=== PATIENT | male | born 1950 | race Caucasian/White ===

== ENCOUNTER 2024-11-15 12:46 | Inpatient (IN) | payer MEDICARE ==
[2024-11-15 13:22] LABS: #Basophils Less than 0.03 10x3/uL (0.0-0.2); #Eosinophils Less than 0.03 10x3/uL (0.0-0.5); #Monocytes 0.53 10x3/uL (0.0-1.1); #Neutrophils 11.24 10x3/uL (1.5-8.4); %Basophils 0.2 % (0.0-2.0); %Eosinophils 0.1 % (0.0-6.0); %Lymphocytes 7.5 % (18.0-47.0); %Monocytes 4.1 % (0.0-10.0); %Neutrophils 87.7 % (40.0-75.0); Hematocrit 41.3 % (38.8-50.0); Mean Corpuscular HGB CONC 31.5 g/dL (32.0-36.0); Mean Corpuscular Hemoglobin 28.6 pg (27.0-33.0); Mean Corpuscular Volume 90.8 fL (81.2-95.1); Mean Platelet Volume 8.8 fL (7.4-10.4); Platelet Count 182 10x3/uL (150-450); RBC Distribution Width 13.2 % (11.5-14.5); Red Blood Cell (RBC) Count 4.55 10x6/uL (4.32-5.72); White Blood Cell (WBC) Count 12.8 10x3/uL (3.5-10.5)
[2024-11-15] MEDS ORDERED: Metoclopramide HCl 10 MG (2 mL) VIAL ONE (13:24)
[2024-11-15] MEDS ORDERED: Aspirin Chewable 81 MG TAB ONE (13:34)
[2024-11-15] MEDS ORDERED: Nitroglycerin 0.4 MG TAB 1 EACH ONE ×2 (13:36→14:47)
[2024-11-15] MEDS ORDERED: Furosemide 100 MG (10 mL) VIAL ONE (13:51)
[2024-11-15] MEDS ORDERED: fentaNYL 50 mcg/mL 1 mL Vial ONE (13:51)
[2024-11-15] MEDS ORDERED: Nitroglycerin 2% Ointment 1 INCH/1 GM Packet ONE (13:51)
[2024-11-15 14:36] LABS: ALT (SGPT) 9 U/L (8-55); AST (SGOT) 13 U/L (5-34); Albumin 3.9 g/dL (3.4-4.8); Alkaline Phosphatase 81 U/L (40-110); Anion Gap 19 mmol/L (10-20); BUN (Urea Nitrogen) 28 mg/dL (8.4-25.7); Bilirubin, Total 0.4 mg/dL (0.2-1.2); Calc. Creatinine Clearance 0 mL/min (70-130); Calcium 9.6 mg/dL (7.8-10.44); Carbon Dioxide 20 mmol/L (23-31); Chloride 106 mmol/L (98-107); Estimated GFR 32; Globulin 3.6 g/dL (2.4-3.5); Glucose 170 mg/dL (83-110); Potassium 4.6 mmol/L (3.5-5.1); Protein, Total 7.5 g/dL (5.8-8.1); Sodium 140 mmol/L (136-145); Troponin I 0.027 ng/mL (< 0.028)
[2024-11-15 15:33] LABS: Magnesium 2.2 mg/dL (1.6-2.6)
[2024-11-15] MEDS ORDERED: Dextrose 5% in Water 1,000 ML IV PRN (16:15)
[2024-11-15] MEDS ORDERED: Dextrose 50% Abboject 50 ML SYRINGE SLOW IVP PRN (16:15)
[2024-11-15] MEDS ORDERED: Insulin Regular, Human 100 UNIT/ML 10 ML VIAL SC PRN (16:15)
[2024-11-15] MEDS ORDERED: Glucagon 1 MG/ML KIT IM PRN (16:15)
[2024-11-15] MEDS ORDERED: Ondansetron PF 4 MG/2 ML Vial IVP PRN (16:15)
[2024-11-15] MEDS ORDERED: Senokot S 8.6-50 MG TAB PO PRN (16:15)
[2024-11-15] MEDS ORDERED: Heparin 25,000 units/D5W 500 ML ONE (16:21)
[2024-11-15 16:37] LABS: PTT 25.9 sec (22.0-33.0); Prothrombin Time 11.1 sec (9.5-12.1)
[2024-11-15 18:36] LABS: Troponin I 0.459 ng/mL (< 0.028)
[2024-11-15] MEDS: Ferrous Sulfate 325 MG TAB PO SCH ×2 (19:33→20:47)
[2024-11-15] MEDS: FLU (Fluad Triv) TS24-25 (65UP)/MF59C/PF 45 MCG/0.5 ML Syringe IM ONE (19:33)
[2024-11-15] MEDS: Carvedilol 6.25 MG TAB PO SCH (20:42)
[2024-11-15] MEDS: Rosuvastatin 10 MG TAB PO SCH (20:47)
[2024-11-15] MEDS: Apixaban 5 MG TAB PO SCH (20:47)
[2024-11-15 23:06] LABS: Critical Call Chem Troponin I ICU.EGM@2304/JG2/WITHREADBACK; Troponin I 1.745 ng/mL (< 0.028)
[2024-11-15] MEDS: Melatonin 3 MG TAB PO SCH (23:53)
[2024-11-16] MEDS: Lantus 1000 UNITS/10 ML VIAL SC SCH ×2 (00:20→20:51)
[2024-11-16 05:28] LABS: Anion Gap 16 mmol/L (10-20); BUN (Urea Nitrogen) 29 mg/dL (8.4-25.7); Calc. Creatinine Clearance 37 mL/min (70-130); Calcium 9.3 mg/dL (7.8-10.44); Carbon Dioxide 21 mmol/L (23-31); Chloride 106 mmol/L (98-107); Estimated GFR 30; Glucose 102 mg/dL (83-110); Potassium 3.9 mmol/L (3.5-5.1); Sodium 139 mmol/L (136-145)
[2024-11-16 05:35] LABS: #Eosinophils 0.06 10x3/uL (0.0-0.5); #Monocytes 0.91 10x3/uL (0.0-1.1); #Neutrophils 7.99 10x3/uL (1.5-8.4); %Basophils 0.1 % (0.0-2.0); %Eosinophils 0.6 % (0.0-6.0); %Lymphocytes 14.9 % (18.0-47.0); %Monocytes 8.6 % (0.0-10.0); %Neutrophils 75.5 % (40.0-75.0); Hematocrit 36.7 % (38.8-50.0); Hemoglobin 11.4 g/dL (13.5-17.5); Mean Corpuscular HGB CONC 31.1 g/dL (32.0-36.0); Mean Corpuscular Hemoglobin 27.9 pg (27.0-33.0); Mean Platelet Volume 8.8 fL (7.4-10.4); Platelet Count 169 10x3/uL (150-450); RBC Distribution Width 13.2 % (11.5-14.5); Red Blood Cell (RBC) Count 4.08 10x6/uL (4.32-5.72); White Blood Cell (WBC) Count 10.6 10x3/uL (3.5-10.5)
[2024-11-16 05:37] LABS: #Basophils 0.01 10x3/uL (0.0-0.2)
[2024-11-16] MEDS: Nitroglycerin 0.4 MG TAB (25 Tab Bottle) SL PRN (05:41)
[2024-11-16] MEDS: Acetaminophen 325 MG TAB PO PRN (05:41)
[2024-11-16] MEDS: Carvedilol 6.25 MG TAB PO SCH (06:19)
[2024-11-16] MEDS: Clopidogrel Bisulfate 75 MG TAB PO SCH (09:47)
[2024-11-16] MEDS: Ferrous Sulfate 325 MG TAB PO SCH (09:47)
[2024-11-16] MEDS: Sodium Chloride 0.9% 1,000 ML IV SCH (09:48)
[2024-11-16] MEDS: Isosorbide Mononitrate 30 MG ER.TAB PO SCH (09:48)
[2024-11-16] MEDS: Amiodarone 200 MG TAB PO SCH ×2 (09:49→20:54)
[2024-11-16 11:57] LABS: Cardiac Risk 3.7 (Less than 4.5)
[2024-11-16 17:19] VITALS: BMI 23.6
[2024-11-17 05:05] LABS: #Basophils 0.04 10x3/uL (0.0-0.2); #Monocytes 1.09 10x3/uL (0.0-1.1); #Neutrophils 8.91 10x3/uL (1.5-8.4); %Basophils 0.3 % (0.0-2.0); %Eosinophils 0.7 % (0.0-6.0); %Lymphocytes 26.1 % (18.0-47.0); %Monocytes 7.9 % (0.0-10.0); %Neutrophils 64.7 % (40.0-75.0); Hematocrit 37.1 % (38.8-50.0); Hemoglobin 12.2 g/dL (13.5-17.5); Mean Corpuscular HGB CONC 32.9 g/dL (32.0-36.0); Mean Corpuscular Hemoglobin 29.1 pg (27.0-33.0); Mean Corpuscular Volume 88.5 fL (81.2-95.1); Platelet Count 231 10x3/uL (150-450); RBC Distribution Width 13.3 % (11.5-14.5); Red Blood Cell (RBC) Count 4.19 10x6/uL (4.32-5.72); White Blood Cell (WBC) Count 13.78 10x3/uL (3.5-10.5)
[2024-11-17 05:14] LABS: Anion Gap 17 mmol/L (10-20); BUN (Urea Nitrogen) 29 mg/dL (8.4-25.7); Calc. Creatinine Clearance 42 mL/min (70-130); Calcium 9.3 mg/dL (7.8-10.44); Carbon Dioxide 19 mmol/L (23-31); Chloride 107 mmol/L (98-107); Estimated GFR 37; Glucose 94 mg/dL (83-110); Potassium 3.9 mmol/L (3.5-5.1); Sodium 139 mmol/L (136-145)
[2024-11-17] MEDS: Metoprolol Tartrate 5 MG (5 mL) VIAL IVP SCH ×2 (08:25→08:40)
[2024-11-17] MEDS ORDERED: Enoxaparin 100 MG (1 mL) SYRINGE SC SCH (08:30)
[2024-11-17] MEDS: Metoprolol Tartrate 5 MG (5 mL) VIAL ONE (08:32)
[2024-11-17] MEDS: Nitroglycerin 2% Ointment 1 INCH/1 GM Packet TOP SCH (09:01)
[2024-11-17 10:22] LABS: Hematocrit 34.2 % (38.8-50.0); Hemoglobin 11.2 g/dL (13.5-17.5); Platelet Count 177 10x3/uL (150-450)
[2024-11-17] MEDS: Carvedilol 6.25 MG TAB PO SCH (11:25)
[2024-11-17] MEDS: Aspirin 81 mg Enteric Coated Tablet PO SCH (11:25)
[2024-11-17] MEDS: Heparin 25,000 units/D5W 500 ML IVPB SCH (11:34)
[2024-11-17] MEDS: Heparin 10,000 UNITS/ 10 ML VIAL SLOW IVP SCH (11:44)
[2024-11-17] MEDS ORDERED: CATH FS SCH (12:00)
[2024-11-17] MEDS: Carvedilol 25 MG TAB PO SCH (17:45)
[2024-11-18 06:40] LABS: #Basophils Less than 0.03 10x3/uL (0.0-0.2); #Monocytes 0.63 10x3/uL (0.0-1.1); #Neutrophils 4.96 10x3/uL (1.5-8.4); %Basophils 0.1 % (0.0-2.0); %Eosinophils 1.3 % (0.0-6.0); %Lymphocytes 26.2 % (18.0-47.0); %Monocytes 8.1 % (0.0-10.0); Hematocrit 32.8 % (38.8-50.0); Hemoglobin 10.5 g/dL (13.5-17.5); Mean Corpuscular Hemoglobin 28.2 pg (27.0-33.0); Mean Corpuscular Volume 88.2 fL (81.2-95.1); Mean Platelet Volume 8.7 fL (7.4-10.4); Platelet Count 149 10x3/uL (150-450); RBC Distribution Width 12.9 % (11.5-14.5); Red Blood Cell (RBC) Count 3.72 10x6/uL (4.32-5.72); White Blood Cell (WBC) Count 7.75 10x3/uL (3.5-10.5)
[2024-11-18 06:55] LABS: INR-International Normal Ratio 1.1; Prothrombin Time 11.8 sec (9.5-12.1)
[2024-11-18 07:02] LABS: ALT (SGPT) 11 U/L (8-55); AST (SGOT) 17 U/L (5-34); Albumin 3.2 g/dL (3.4-4.8); Alkaline Phosphatase 64 U/L (40-110); Anion Gap 14 mmol/L (10-20); BUN (Urea Nitrogen) 24 mg/dL (8.4-25.7); Bilirubin, Total 0.6 mg/dL (0.2-1.2); Calc. Creatinine Clearance 44 mL/min (70-130); Calcium 8.8 mg/dL (7.8-10.44); Carbon Dioxide 21 mmol/L (23-31); Chloride 110 mmol/L (98-107); Estimated GFR 39; Globulin 2.9 g/dL (2.4-3.5); Glucose 88 mg/dL (83-110); Potassium 3.7 mmol/L (3.5-5.1); Protein, Total 6.1 g/dL (5.8-8.1); Sodium 141 mmol/L (136-145)
[2024-11-18] MEDS ORDERED: Heparin 10,000 UNITS/ 10 ML VIAL ONE (07:11)
[2024-11-18] MEDS ORDERED: Nitroglycerin 50 MG/250 ML BOT 0 ML ONE (07:11)
[2024-11-18] MEDS ORDERED: Adenosine 6 mg (2 mL) VIAL ONE (07:11)
[2024-11-18] MEDS ORDERED: fentaNYL 50 mcg/mL 1 mL Vial ONE (07:12)
[2024-11-18] MEDS ORDERED: Lidocaine 1% (PF) 30 ML VIAL ONE (07:12)
[2024-11-18] MEDS ORDERED: Midazolam HCl 2 mg/2 ml Vial ONE (07:12)
[2024-11-18] MEDS ORDERED: Sodium Chloride 0.9% 200 ML IV PRN (10:34)
[2024-11-18] MEDS ORDERED: Acetaminophen/Codeine 30-300mg Tablet PO PRN (10:34)
[2024-11-18] MEDS ORDERED: Nitroglycerin 0.4 MG TAB (25 Tab Bottle) SL PRN (10:34)
[2024-11-18] MEDS ORDERED: Iopamidol 300 61% 100 ML VIAL FS ONE (13:36)
[2024-11-18] MEDS: Rosuvastatin 20 MG TAB PO SCH (20:29)
[2024-11-19 05:06] LABS: Anion Gap 16 mmol/L (10-20); BUN (Urea Nitrogen) 22 mg/dL (8.4-25.7); Calc. Creatinine Clearance 48 mL/min (70-130); Calcium 9.2 mg/dL (7.8-10.44); Carbon Dioxide 19 mmol/L (23-31); Chloride 109 mmol/L (98-107); Estimated GFR 42; Glucose 97 mg/dL (83-110); Potassium 3.7 mmol/L (3.5-5.1); Sodium 140 mmol/L (136-145)
[2024-11-19 09:49] LABS: Hematocrit 31.9 % (38.8-50.0); Hemoglobin 10.1 g/dL (13.5-17.5); Platelet Count 178 10x3/uL (150-450)
[2024-11-19] MEDS: Nitroglycerin 2% Ointment 1 INCH/1 GM Packet TOP SCH (12:55)
[2024-11-19] MEDS: Isosorbide Mononitrate 30 MG ER.TAB PO SCH (13:33)
[2024-11-19] MEDS: ALPRAZolam 0.25 MG TAB PO PRN (13:33)
[2024-11-19] MEDS: Carvedilol 12.5 MG TAB PO SCH (17:44)
[2024-11-19] MEDS: Ranolazine ER 500 MG TAB PO SCH (20:44)
[2024-11-20] MEDS: Acetaminophen/Codeine 30-300mg Tablet PO PRN (04:33)
[2024-11-20 05:01] LABS: Anion Gap 10 mmol/L (10-20); BUN (Urea Nitrogen) 19 mg/dL (8.4-25.7); Calc. Creatinine Clearance 52 mL/min (70-130); Calcium 8.4 mg/dL (7.8-10.44); Carbon Dioxide 22 mmol/L (23-31); Chloride 113 mmol/L (98-107); Estimated GFR 47; Glucose 85 mg/dL (83-110); Magnesium 1.8 mg/dL (1.6-2.6); Potassium 3.6 mmol/L (3.5-5.1); Sodium 141 mmol/L (136-145)
[2024-11-20] MEDS ORDERED: Nitroglycerin 0.4 MG TAB (25 Tab Bottle) SL PRN (06:50)
[2024-11-20] MEDS: Nitroglycerin 0.4 MG TAB (25 Tab Bottle) SL SCH (06:51)
[2024-11-20] MEDS: Isosorbide Mononitrate 60 MG ER.TAB PO SCH (08:24)
[2024-11-20] MEDS: Magnesium Oxide 400 MG TAB PO SCH (08:24)
[2024-11-20 16:27] VITALS: BP 126/65; TEMP 98.4
[2024-11-20] MEDS ORDERED: Apixaban 5 MG TAB PO SCH (21:00)
== END 2024-11-20 17:40 | disposition home or self-care (01) | DRG 281 ==
LOC: CSHERS 12:46 → CSHTELE 15:56
PROVIDERS: ADMIT Hospitalist; ATTEND Hospitalist
PROC: 4A023N7 Measurement of Cardiac Sampling and Pressure, Left Heart, Percutaneous Approach (ICD-10-PCS; principal; 2024-11-18)
PROC: B2111ZZ Fluoroscopy of Multiple Coronary Arteries using Low Osmolar Contrast (ICD-10-PCS; 2024-11-18)
PROC: B2151ZZ Fluoroscopy of Left Heart using Low Osmolar Contrast (ICD-10-PCS; 2024-11-18)
DX: I21.4 Non-ST elevation (NSTEMI) myocardial infarction (principal); I13.0 Hypertensive heart and chronic kidney disease with heart failure and stage 1 through stage 4 chronic kidney disease, or unspecified chronic kidney disease; I50.22 Chronic systolic (congestive) heart failure; I48.92 Unspecified atrial flutter; I25.10 Atherosclerotic heart disease of native coronary artery without angina pectoris; E11.22 Type 2 diabetes mellitus with diabetic chronic kidney disease; E78.5 Hyperlipidemia, unspecified; N18.32 Chronic kidney disease, stage 3b; I25.110 Atherosclerotic heart disease of native coronary artery with unstable angina pectoris; E66.9 Obesity, unspecified; I25.5 Ischemic cardiomyopathy; Z95.1 Presence of aortocoronary bypass graft; Z95.9 Presence of cardiac and vascular implant and graft, unspecified; Z79.01 Long term (current) use of anticoagulants; Z79.82 Long term (current) use of aspirin; Z79.4 Long term (current) use of insulin; Z79.899 Other long term (current) drug therapy
CPT/HCPCS: 36415; 36416; 71045; 80048; 80053; 80061; 83735; 83880; 84484; 85014; 85018; 85025; 85049; 85347; 85610; 85730; 92920; 93005; 93010; 93459; 94760; 96374; 96375; 96376; 99152; 99153; C1725; C1760; C1769; C1874; C1887; C1894; J0153; J1644; J1815; J1940; J2250; J2765; J3010; J7030; Q9967